=== PATIENT | male | born 1940 | race Caucasian/White ===

== ENCOUNTER 2021-03-14 05:56 | Inpatient (IN) | payer MEDICARE ==
[~2021-03-14] VITALS: Ht 170.2 cm; Wt 77.6 kg
[~2021-03-14 05:56] MED LIST: ALENDRONATE SOD70 MG PO; ATORVASTATIN CA10 MG PO; CIPRO250 MG PO; FINASTERIDE5 MG PO; FLOMAX0.4 MG PO; METFORMIN HCL500 MG PO; OMEPRAZOLE40 MG PO; ST. JOSEPH ASPI81 MG PO; VITAMIN D3250 MC1 PO
[2021-03-14] MEDS ORDERED: LEVOFLOXACIN 500MG/D5W 100ML 100 ML IV ONE (06:43)
[2021-03-14] MEDS ORDERED: SODIUM CHLORIDE 0.9% 1000ML 1,000 ML ONE (06:44)
[2021-03-14] MEDS ORDERED: GENTAMICIN 80MG/NS 100 ML 200 ML IV ONE (06:44)
[2021-03-14 06:55] LABS: BASOPHILS # (AUTO) 0.1 (0.0-0.1); BASOPHILS % 0.6 % (0.0-1.0); EOSINOPHILS # (AUTO) 0.3 (0.0-0.4); EOSINOPHILS % 3.5 % (0.0-6.0); HEMATOCRIT 47.1 % (38.2-49.6); HEMOGLOBIN 14.7 g/dL (14.0-18.0); LYMPHOCYTES # (AUTO) 1.3 (1.0-3.2); LYMPHOCYTES % 13.8 % (18.0-39.1); MEAN CORPUSCULAR HGB CONC 31.2 g/dL (31-35); MEAN CORPUSCULAR VOLUME 89.7 fL (81-99); MONOCYTES # (AUTO) 1.1 (0.2-0.8); MONOCYTES % 11.8 % (4.4-11.3); NEUTROPHILS # (AUTO) 6.5 (2.1-6.9); PLATELET COUNT 491 x10e3/uL (140-360); RED BLOOD COUNT 5.25 x10e6/uL (4.3-5.7); RED CELL DISTRIBUTION WIDTH 14.5 % (11.7-14.4)
[2021-03-14 07:10] LABS: ANION GAP 14.1 mmol/L (8-16); CALCIUM 9.9 mg/dL (8.4-10.2); CREATININE, SERUM 0.82 mg/dL (0.72-1.25); POTASSIUM 4.1 mmol/L (3.5-5.1)
[2021-03-14] MEDS ORDERED: IOPAMIDOL 300MG/ML 50ML INFUS..BTL IV ONE (08:22)
[2021-03-14] MEDS ORDERED: B&O 60MG R/S 60 MG SUPP PR ONE (08:22)
[2021-03-14] MEDS ORDERED: B&O 60MG R/S 60 MG SUPP PR PRN (10:30)
[2021-03-14] MEDS ORDERED: PHENAZOPYRIDINE HCL 100 MG TAB PO PRN (10:30)
[2021-03-14] MEDS ORDERED: ONDANSETRON HCL INJ 2MG/ML 2ML 2 MG/ML VIAL IV PRN (10:30)
[2021-03-14] MEDS ORDERED: DIPHENHYDRAMINE HCL 25 MG CAP PO PRN (10:30)
[2021-03-14] MEDS ORDERED: METOCLOPRAMIDE HCL 10 MG/2ML VIAL ONE (10:59)
[2021-03-14 11:14] LABS: BASOPHILS % 0.4 % (0.0-1.0); EOSINOPHILS # (AUTO) 0.2 (0.0-0.4); HEMATOCRIT 44.8 % (38.2-49.6); LYMPHOCYTES % 10.5 % (18.0-39.1); MEAN CORPUSCULAR HEMOGLOBIN 28.5 pg (28-32); MEAN CORPUSCULAR HGB CONC 31.3 g/dL (31-35); MEAN CORPUSCULAR VOLUME 91.2 fL (81-99); MONOCYTES # (AUTO) 0.8 (0.2-0.8); MONOCYTES % 8.2 % (4.4-11.3); NEUTROPHILS # (AUTO) 7.3 (2.1-6.9); NEUTROPHILS % 78.5 % (38.7-80.0); RED BLOOD COUNT 4.91 x10e6/uL (4.3-5.7); RED CELL DISTRIBUTION WIDTH 14.3 % (11.7-14.4)
[2021-03-14 11:18] LABS: PLATELET COUNT 449 x10e3/uL (140-360)
[2021-03-14 11:45] LABS: ANION GAP 11.4 mmol/L (8-16); CALCIUM 8.9 mg/dL (8.4-10.2); CREATININE, SERUM 0.71 mg/dL (0.72-1.25); POTASSIUM 4.4 mmol/L (3.5-5.1)
[2021-03-14 12:07] VITALS: BP 140/76
[2021-03-14 12:40] VITALS: BP 140/76
[2021-03-14] MEDS ORDERED: FENTANYL CITRATE/PF 100MCG/2 ML INJ ONE (13:57)
[2021-03-14 16:17] VITALS: BP 124/66
[2021-03-14] MEDS ORDERED: POVIDONE IODINE 0.05% 0.05 % ML PO ONE (17:37)
[2021-03-14] MEDS ORDERED: PROPOFOL IV EMULSION 10 MG/ML 20 ML VIAL ONE (17:37)
[2021-03-14] MEDS ORDERED: SEVOFLURANE INHAL SOLN 250 ML PEN BTL ONE (17:37)
[2021-03-14] MEDS ORDERED: ONDANSETRON HCL INJ 2MG/ML 2ML 2 MG/ML VIAL ONE (17:37)
[2021-03-14] MEDS ORDERED: LIDOCAINE HCL 2% LOCAL INJ 5 ML SDV VIAL INJ ONE (17:37)
[2021-03-14] MEDS: DOCUSATE SODIUM 100 MG CAP PO SCH (17:43)
[2021-03-14 19:52] VITALS: BP 114/71
[2021-03-14 20:15] VITALS: BP 114/71
[2021-03-14] MEDS: SOD CHL 0.45%/POT CHL 20MEQ 1,000 ML IV SCH ×2 (20:25→23:26)
[2021-03-14 23:51] VITALS: BP 110/66
[2021-03-15] VITALS (8 sets, daily range): BP systolic 101–127; BP diastolic 60–76
[2021-03-15 05:36] LABS: BASOPHILS # (AUTO) 0.1 (0.0-0.1); BASOPHILS % 0.3 % (0.0-1.0); EOSINOPHILS # (AUTO) 0.6 (0.0-0.4); EOSINOPHILS % 3.5 % (0.0-6.0); HEMATOCRIT 43.6 % (38.2-49.6); HEMOGLOBIN 13.5 g/dL (14.0-18.0); LYMPHOCYTES # (AUTO) 0.7 (1.0-3.2); LYMPHOCYTES % 4.7 % (18.0-39.1); MEAN CORPUSCULAR VOLUME 90.5 fL (81-99); MONOCYTES # (AUTO) 1.5 (0.2-0.8); MONOCYTES % 9.4 % (4.4-11.3); NEUTROPHILS # (AUTO) 12.7 (2.1-6.9); NEUTROPHILS % 81.6 % (38.7-80.0); PLATELET COUNT 493 x10e3/uL (140-360); RED BLOOD COUNT 4.82 x10e6/uL (4.3-5.7); RED CELL DISTRIBUTION WIDTH 14.5 % (11.7-14.4)
[2021-03-15 05:59] LABS: ANION GAP 12.1 mmol/L (8-16); CALCIUM 8.7 mg/dL (8.4-10.2); CREATININE, SERUM 0.78 mg/dL (0.72-1.25); POTASSIUM 4.1 mmol/L (3.5-5.1)
[2021-03-15] MEDS ORDERED: DEXTROSE 50% SYRINGE 50 ML IV PRN (08:30)
[2021-03-15] MEDS ORDERED: PANTOPRAZOLE SOD 40 MG TABEC PO SCH (09:00)
[2021-03-15] MEDS: CEFTRIAXONE 1 GM in SODIUM CHLORIDE 0.9% 50ML 50 ML IV SCH (09:10)
[2021-03-15] MEDS: DOCUSATE SODIUM 100 MG CAP PO SCH ×2 (09:10→16:31)
[2021-03-15] MEDS: MAGNESIUM OXIDE 400 MG TAB PO SCH ×2 (09:17→16:32)
[2021-03-15] MEDS: FINASTERIDE 5 MG TAB PO SCH (09:17)
[2021-03-15] MEDS: METFORMIN HCL 500 MG TAB PO SCH ×2 (09:17→16:31)
[2021-03-15] MEDS: OMEPRAZOLE 20 MG CAP PO SCH ×2 (09:30→16:32)
[2021-03-15] MEDS: INSULIN LISPRO 100 UNIT/1 ML 3ML VIAL SQ SCH ×3 (11:28→21:00)
[2021-03-15] MEDS ORDERED: ONDANSETRON HCL 4 MG ORAL DISINTEGRATING TAB PO PRN (13:45)
[2021-03-15] MEDS: TAMSULOSIN HCL 0.4 MG CAP PO SCH (16:31)
[2021-03-15] MEDS: ATORVASTATIN 10 MG TAB PO SCH (21:00)
[2021-03-15] MEDS: ACETAMINOPHEN/CODEINE 300MG - 30MG TAB PO PRN (21:00)
[2021-03-16 05:14] VITALS: BP 125/73
[2021-03-16 05:39] LABS: BASOPHILS # (AUTO) 0.1 (0.0-0.1); BASOPHILS % 0.5 % (0.0-1.0); EOSINOPHILS # (AUTO) 0.7 (0.0-0.4); EOSINOPHILS % 6.6 % (0.0-6.0); HEMATOCRIT 41.5 % (38.2-49.6); HEMOGLOBIN 12.9 g/dL (14.0-18.0); LYMPHOCYTES # (AUTO) 0.8 (1.0-3.2); LYMPHOCYTES % 7.2 % (18.0-39.1); MEAN CORPUSCULAR HGB CONC 31.1 g/dL (31-35); MEAN CORPUSCULAR VOLUME 90.2 fL (81-99); MONOCYTES # (AUTO) 1.4 (0.2-0.8); MONOCYTES % 13.7 % (4.4-11.3); NEUTROPHILS # (AUTO) 7.5 (2.1-6.9); NEUTROPHILS % 71.5 % (38.7-80.0); PLATELET COUNT 369 x10e3/uL (140-360); RED CELL DISTRIBUTION WIDTH 14.3 % (11.7-14.4)
[2021-03-16 05:59] LABS: CREATININE, SERUM 0.72 mg/dL (0.72-1.25)
[2021-03-16 08:09] VITALS: BP 118/70
[2021-03-16] MEDS: METFORMIN HCL 500 MG TAB PO SCH ×2 (09:21→17:29)
[2021-03-16] MEDS: CEFTRIAXONE 1 GM in SODIUM CHLORIDE 0.9% 50ML 50 ML IV SCH (09:21)
[2021-03-16] MEDS: DOCUSATE SODIUM 100 MG CAP PO SCH ×2 (09:22→17:29)
[2021-03-16] MEDS: OMEPRAZOLE 20 MG CAP PO SCH ×2 (09:27→17:29)
[2021-03-16] MEDS: FINASTERIDE 5 MG TAB PO SCH (09:27)
[2021-03-16] MEDS: MAGNESIUM OXIDE 400 MG TAB PO SCH ×2 (09:27→17:29)
[2021-03-16 09:48] VITALS: BP 118/70
[2021-03-16] MEDS: INSULIN LISPRO 100 UNIT/1 ML 3ML VIAL SQ SCH ×4 (09:55→22:51)
[2021-03-16 12:03] VITALS: BP 117/77
[2021-03-16 16:00] VITALS: BP 116/66
[2021-03-16] MEDS: TAMSULOSIN HCL 0.4 MG CAP PO SCH (17:29)
[2021-03-16 20:00] VITALS: BP_SYST 116; BP_SYST 162; BP_DIAS 66; BP_DIAS 98
[2021-03-16] MEDS: ACETAMINOPHEN/CODEINE 300MG - 30MG TAB PO PRN (20:30)
[2021-03-16] MEDS: ATORVASTATIN 10 MG TAB PO SCH (21:15)
[2021-03-17] VITALS (8 sets, daily range): BP systolic 115–162; BP diastolic 73–90
[2021-03-17] MEDS: ACETAMINOPHEN/CODEINE 300MG - 30MG TAB PO PRN ×3 (02:26→22:40)
[2021-03-17 06:01] LABS: BASOPHILS # (AUTO) 0.1 (0.0-0.1); BASOPHILS % 0.4 % (0.0-1.0); EOSINOPHILS # (AUTO) 0.7 (0.0-0.4); EOSINOPHILS % 5.8 % (0.0-6.0); HEMATOCRIT 41.9 % (38.2-49.6); HEMOGLOBIN 13.3 g/dL (14.0-18.0); LYMPHOCYTES # (AUTO) 0.8 (1.0-3.2); LYMPHOCYTES % 6.3 % (18.0-39.1); MEAN CORPUSCULAR HEMOGLOBIN 28.1 pg (28-32); MEAN CORPUSCULAR HGB CONC 31.7 g/dL (31-35); MEAN CORPUSCULAR VOLUME 88.4 fL (81-99); MONOCYTES # (AUTO) 1.4 (0.2-0.8); MONOCYTES % 11.3 % (4.4-11.3); NEUTROPHILS # (AUTO) 9.1 (2.1-6.9); NEUTROPHILS % 75.6 % (38.7-80.0); PLATELET COUNT 406 x10e3/uL (140-360); RED BLOOD COUNT 4.74 x10e6/uL (4.3-5.7); RED CELL DISTRIBUTION WIDTH 13.9 % (11.7-14.4)
[2021-03-17 06:13] LABS: ANION GAP 12.9 mmol/L (8-16); CALCIUM 9.2 mg/dL (8.4-10.2); CREATININE, SERUM 0.73 mg/dL (0.72-1.25); POTASSIUM 3.9 mmol/L (3.5-5.1)
[2021-03-17] MEDS: INSULIN LISPRO 100 UNIT/1 ML 3ML VIAL SQ SCH ×4 (07:30→20:46)
[2021-03-17] MEDS: METFORMIN HCL 500 MG TAB PO SCH ×2 (10:47→18:13)
[2021-03-17] MEDS: OMEPRAZOLE 20 MG CAP PO SCH ×2 (10:48→17:00)
[2021-03-17] MEDS: FINASTERIDE 5 MG TAB PO SCH (10:48)
[2021-03-17] MEDS: CEFTRIAXONE 1 GM in SODIUM CHLORIDE 0.9% 50ML 50 ML IV SCH (10:48)
[2021-03-17] MEDS: MAGNESIUM OXIDE 400 MG TAB PO SCH ×2 (10:48→18:13)
[2021-03-17] MEDS: DOCUSATE SODIUM 100 MG CAP PO SCH ×2 (10:48→18:13)
[2021-03-17] MEDS ORDERED: SODIUM CHLORIDE 0.9% 50ML 50 ML ONE (10:56)
[2021-03-17] MEDS: TAMSULOSIN HCL 0.4 MG CAP PO SCH (18:13)
[2021-03-17] MEDS: ATORVASTATIN 10 MG TAB PO SCH (20:45)
[2021-03-18] VITALS (8 sets, daily range): BP systolic 111–158; BP diastolic 66–95
[2021-03-18 06:24] LABS: BASOPHILS # (AUTO) 0.1 (0.0-0.1); BASOPHILS % 0.5 % (0.0-1.0); EOSINOPHILS # (AUTO) 0.5 (0.0-0.4); EOSINOPHILS % 4.4 % (0.0-6.0); HEMATOCRIT 41.3 % (38.2-49.6); HEMOGLOBIN 13.2 g/dL (14.0-18.0); LYMPHOCYTES # (AUTO) 0.8 (1.0-3.2); LYMPHOCYTES % 6.6 % (18.0-39.1); MEAN CORPUSCULAR HEMOGLOBIN 28.1 pg (28-32); MEAN CORPUSCULAR VOLUME 88.1 fL (81-99); MONOCYTES # (AUTO) 1.7 (0.2-0.8); MONOCYTES % 13.4 % (4.4-11.3); NEUTROPHILS # (AUTO) 9.2 (2.1-6.9); NEUTROPHILS % 74.5 % (38.7-80.0); PLATELET COUNT 439 x10e3/uL (140-360); RED BLOOD COUNT 4.69 x10e6/uL (4.3-5.7); RED CELL DISTRIBUTION WIDTH 14.1 % (11.7-14.4)
[2021-03-18 06:40] LABS: ANION GAP 10.9 mmol/L (8-16); CALCIUM 9.3 mg/dL (8.4-10.2); CREATININE, SERUM 0.76 mg/dL (0.72-1.25); POTASSIUM 3.9 mmol/L (3.5-5.1)
[2021-03-18] MEDS: OMEPRAZOLE 20 MG CAP PO SCH ×2 (09:00→17:24)
[2021-03-18] MEDS: DOCUSATE SODIUM 100 MG CAP PO SCH ×2 (10:47→17:24)
[2021-03-18] MEDS: INSULIN LISPRO 100 UNIT/1 ML 3ML VIAL SQ SCH ×4 (10:47→21:00)
[2021-03-18] MEDS: MAGNESIUM OXIDE 400 MG TAB PO SCH ×2 (10:47→17:24)
[2021-03-18] MEDS: CEFTRIAXONE 1 GM in SODIUM CHLORIDE 0.9% 50ML 50 ML IV SCH (10:47)
[2021-03-18] MEDS: METFORMIN HCL 500 MG TAB PO SCH ×2 (10:50→17:24)
[2021-03-18] MEDS: FINASTERIDE 5 MG TAB PO SCH (10:51)
[2021-03-18] MEDS: TAMSULOSIN HCL 0.4 MG CAP PO SCH (17:24)
[2021-03-18] MEDS: ATORVASTATIN 10 MG TAB PO SCH (21:58)
[2021-03-19] VITALS: BP 122/78
[2021-03-19 04:00] VITALS: BP 125/90
[2021-03-19 05:06] LABS: BASOPHILS # (AUTO) 0.1 (0.0-0.1); BASOPHILS % 0.7 % (0.0-1.0); EOSINOPHILS # (AUTO) 0.5 (0.0-0.4); EOSINOPHILS % 4.7 % (0.0-6.0); HEMATOCRIT 39.2 % (38.2-49.6); HEMOGLOBIN 12.4 g/dL (14.0-18.0); LYMPHOCYTES % 9.4 % (18.0-39.1); MEAN CORPUSCULAR HEMOGLOBIN 27.9 pg (28-32); MEAN CORPUSCULAR HGB CONC 31.6 g/dL (31-35); MEAN CORPUSCULAR VOLUME 88.3 fL (81-99); MONOCYTES # (AUTO) 1.7 (0.2-0.8); MONOCYTES % 15.9 % (4.4-11.3); NEUTROPHILS # (AUTO) 7.2 (2.1-6.9); NEUTROPHILS % 68.7 % (38.7-80.0); PLATELET COUNT 379 x10e3/uL (140-360); RED BLOOD COUNT 4.44 x10e6/uL (4.3-5.7); RED CELL DISTRIBUTION WIDTH 14.1 % (11.7-14.4)
[2021-03-19 05:28] LABS: ANION GAP 11.7 mmol/L (8-16); CALCIUM 9.2 mg/dL (8.4-10.2); CREATININE, SERUM 0.68 mg/dL (0.72-1.25); POTASSIUM 3.7 mmol/L (3.5-5.1)
[2021-03-19 07:46] VITALS: BP 120/72
[2021-03-19] MEDS: INSULIN LISPRO 100 UNIT/1 ML 3ML VIAL SQ SCH ×2 (08:01→11:30)
[2021-03-19] MEDS: METFORMIN HCL 500 MG TAB PO SCH (08:45)
[2021-03-19] MEDS: FINASTERIDE 5 MG TAB PO SCH (08:46)
[2021-03-19] MEDS: CEFTRIAXONE 1 GM in SODIUM CHLORIDE 0.9% 50ML 50 ML IV SCH (08:46)
[2021-03-19] MEDS: DOCUSATE SODIUM 100 MG CAP PO SCH (08:46)
[2021-03-19] MEDS: MAGNESIUM OXIDE 400 MG TAB PO SCH (08:46)
[2021-03-19] MEDS: OMEPRAZOLE 20 MG CAP PO SCH (08:46)
[2021-03-19 09:00] VITALS: BP 126/78
[2021-03-19 11:12] VITALS: BP 126/78
[2021-03-19 15:07] VITALS: BP 142/102
== END 2021-03-19 17:25 | disposition home or self-care (01) | DRG 713 ==
LOC: OR 05:56 → PACU V 10:56 → MED/SURG 12:05
PROVIDERS: ADMIT Internal Medicine; ATTEND Internal Medicine
PROC: 0T788ZZ Dilation of Bilateral Ureters, Via Natural or Artificial Opening Endoscopic (ICD-10-PCS; 2021-03-14)
PROC: 0V508ZZ Destruction of Prostate, Via Natural or Artificial Opening Endoscopic (ICD-10-PCS; principal; 2021-03-14 08:00)
PROC: BT141ZZ Fluoroscopy of Kidneys, Ureters and Bladder using Low Osmolar Contrast (ICD-10-PCS; 2021-03-14 08:00)
DX: N40.1 Benign prostatic hyperplasia with lower urinary tract symptoms (principal); N13.8 Other obstructive and reflux uropathy; N39.0 Urinary tract infection, site not specified; N13.6 Pyonephrosis; R31.0 Gross hematuria; I10 Essential (primary) hypertension; E11.9 Type 2 diabetes mellitus without complications; E78.00 Pure hypercholesterolemia, unspecified; R33.9 Retention of urine, unspecified; R33.8 Other retention of urine; Z20.822 Contact with and (suspected) exposure to COVID-19; N32.81 Overactive bladder
CPT/HCPCS: 36415; 71046; 74420; 80048; 82948; 83735; 85025; 88305; 93005; 96372; 99251; C1758; J0696; J1580; J1956; J2001; J2405; J2765; J3010; J7030; Q0162; U0002